=== PATIENT | female | born 1975 | race Caucasian/White ===

== ENCOUNTER 2017-04-05 19:16 | Emergency (ER) | payer OTHER ==
[2017-04-05 19:28] VITALS: BP 112/78; PULSE 80; BMI 25.0
[2017-04-05 19:51] LABS: PH,URINE 6.5 (4.5-8); URINE APPEARANCE Clear; URINE BILIRUBIN Negative (NEGATIVE); URINE BLOOD Negative (NEGATIVE); URINE GLUCOSE (UA) Negative (NEGATIVE); URINE KETONE Negative (NEGATIVE); URINE NITRITE Positive (NEGATIVE); URINE PROTEIN Negative (NEGATIVE); URINE UROBILINOGEN 0.2 (0.2-1.0)
[2017-04-05 19:52] LABS: URINE COLOR YELLOW; URINE LEUK ESTERASE 1+ (NEGATIVE)
--- NOTE | 2017-04-05 20:05 | PDOC ---
History of Present Illness - General History Source: Patient, Old Records Exam Limitations: No Limitations - History of Present Illness Initial Comments: 04/05/17 20:23 The patient is a 41 year old female, with a significant past medical history of recurrent UTIs, who presents to the emergency department with dysuria, frequency and periumbilical pressure onset today. She notes that she has been using Vasigil for a vaginal itch lately which she believes may have exacerbated her condition. She reports that her last UTI was last summer and she usually gets them in the summer. She denies any new sexual partners. She denies any vaginal discharge or vaginal bleeding. The patient denies chest pain, shortness of breath, headache and dizziness. Denies fever, chills, nausea, vomit, diarrhea and constipation. LMP: 2 weeks ago Allergies:None Past surgical history: None reported Social history: No alcohol, tobacco or drug use reported <Gary Hernandez - Last Filed: 04/05/17 20:23> <Chrissy Morrow - Last Filed: 04/06/17 01:06> - General Chief Complaint: Urinary Problem Stated Complaint: I have UTI s/s of UTI since 4pm" Time Seen by Provider: 04/05/17 19:31 Past History <Gary Hernandez - Last Filed: 04/05/17 20:23> - Past Medical History Other medical history: recurrent UTI - Reproductive History Is Patient Now?: No - Psycho/Social/Smoking Cessation Hx Anxiety: No Suicidal Ideation: No Smoking Status: No Smoking History: Never smoked Number of Cigarettes Smoked Daily: 0 Information on smoking cessation initiated: No Hx Alcohol Use: No Drug/Substance Use Hx: No Substance Use Type: None <Chrissy Morrow - Last Filed: 04/06/17 01:06> - Past Medical History Allergies/Adverse Reactions: Allergies Allergy/AdvReac Type Severity Reaction Status Date / Time No Known Allergies Allergy Verified 04/05/17 19:19 Home Medications: Ambulatory Orders Ciprofloxacin [Cipro (Restricted To Id)] 250 mg PO BID #10 tablet 04/05/17 Phenazopyridine HCl [Pyridium] 200 mg PO TID #6 tablet 04/05/17 Review of Systems - Review of Systems Able to Perform ROS?: Yes Comments:: 04/05/17 20:23 GENERAL/CONSTITUTIONAL: No fever or chills. No weakness. CARDIOVASCULAR: No chest pain or shortness of breath RESPIRATORY: No cough, wheezing, or hemoptysis. GASTROINTESTINAL: (+) Abdominal pain. No nausea, vomiting, diarrhea or constipation. GENITOURINARY: (+) Dysuria, frequency MUSCULOSKELETAL: No joint or muscle swelling or pain. No neck or back pain. SKIN: No rash NEUROLOGIC: No headache, vertigo, loss of consciousness, or change in strength/ sensation. <Gary Hernandez - Last Filed: 04/05/17 20:23> *Physical Exam - Vital Signs Last Vital Signs Temp Pulse Resp BP Pulse Ox 98.6 F 80 18 112/78 99 04/05/17 20:20 04/05/17 19:22 04/05/17 19:22 04/05/17 19:22 04/05/17 19:22 - Physical Exam Comments: 04/05/17 20:23 GENERAL: Awake, alert, and fully oriented, in no acute distress ABDOMEN: (+) Mild tenderness to light palpation suprapubic region. Soft, normoactive bowel sounds. No guarding, no rebound. No masses NEUROLOGICAL: Cranial nerves II through XII grossly intact. Normal speech, normal gait, no focal sensorimotor deficits SKIN: Warm, Dry, normal turgor, no rashes or lesions noted. <Gary Hernandez - Last Filed: 04/05/17 20:23> - Vital Signs Last Vital Signs Temp Pulse Resp BP Pulse Ox 80 18 112/78 99 04/05/17 19:22 04/05/17 19:22 04/05/17 19:22 04/05/17 19:22 <Chrissy Morrow - Last Filed: 04/06/17 01:06> ED Treatment Course - ADDITIONAL ORDERS Additional order review: Laboratory Results 04/05/17 19:37 Urine Color Yellow Urine Appearance Clear Urine pH 6.5 Ur Specific [place] <= 1.005 Urine Protein Negative Urine Glucose (UA) Negative Urine Ketones Negative Urine Blood Negative Urine Nitrite Positive Urine Bilirubin Negative Urine Urobilinogen 0.2 Ur Leukocyte Esterase 1+ H Urine HCG, Qual Negative - Medications Given in the ED: ED Medications Discontinued Medications Generic Name Dose Route Start Last Admin Trade Name Freq PRN Reason Stop Dose Admin Ciprofloxacin 250 mg 04/05/17 20:11 04/05/17 20:19 Cipro (Restricted To Id) PO 04/05/17 20:12 250 mg ONCE ONE Administration Phenazopyridine HCl 200 mg 04/05/17 20:12 04/05/17 20:20 Pyridium - PO 04/05/17 20:13 200 mg ONCE ONE Administration <DavidGaryfrandy Brandone - Last Filed: 04/05/17 20:23> - ADDITIONAL ORDERS Additional order review: Laboratory Results 04/05/17 19:37 Urine Color Yellow Urine Appearance Clear Urine pH 6.5 Ur Specific [place] <= 1.005 Urine Protein Negative Urine Glucose (UA) Negative Urine Ketones Negative Urine Blood Negative Urine Nitrite Positive Urine Bilirubin Negative Urine Urobilinogen 0.2 Ur Leukocyte Esterase 1+ H Urine HCG, Qual Negative <Chrissy Morrow - Last Filed: 04/06/17 01:06> Progress Note - Progress Note Progress Note: Documentation has been prepared under my direction and personally reviewed by me in its entirety. I attest that this documented accurately reflects all work, treatment, procedures and medical decision making performed by me. <Chrissy Morrow - Last Filed: 04/06/17 01:06> Medical Decision Making - Medical Decision Making As noted above, this 41-year-old woman with a history of frequent urinary tract infections presents with several hour history of symptoms consistent with her usual UTI complaints. Of note, patient denies fever/back pain/vomiting. She has no previous history of upper tract UTIs. No other complaints. Exam as noted; no evidence of systemic illness or upper tract UTI. Urinalysis is positive for nitrite/1+ LE; microscopic shows 2-3 red cells/4-6 white cells/few bacteria Urine sent for culture and sensitivity PGU negative Patient states that over the years, she has had some antibiotics that have been ineffective and some that have been effective. She cannot recall the names of any of them. She has no history of ALLERGIES or sensitivities to any antibiotic. Patient will be started on ciprofloxacin 250 mg twice a day for 5 days with first dose given here in the ER. Peridium 200 mg 3 times a day for 2 days will also be given for patient's complaint of dysuria. First dose will be given here in the emergency room. Patient has been advised to return to the ER if she has worsening pain ( especially development of back pain), fever/chills or vomiting <Chrissy Morrow - Last Filed: 04/06/17 01:06> *DC/Admit/Observation/Transfer - Attestations Scribe Attestion: 04/05/17 20:24 Documentation prepared by Gary Hernandez, acting as medical records clerk for Chrissy Morrow MD <Gary Hernandez - Last Filed: 04/05/17 20:23> <Chrissy Morrow - Last Filed: 04/06/17 01:06> Diagnosis at time of Disposition: UTI (urinary tract infection) Qualifiers: Urinary tract infection type: acute cystitis Hematuria presence: without hematuria Qualified Code(s): N30.00 - Acute cystitis without hematuria - Discharge Dispostion Disposition: HOME Condition at time of disposition: Stable - Prescriptions Prescriptions: Ciprofloxacin [Cipro (Restricted To Id)] 250 mg PO BID #10 tablet Phenazopyridine HCl [Pyridium] 200 mg PO TID #6 tablet - Patient Instructions Printed Discharge Instructions: Urinary Tract Infection Additional Instructions: drink plenty of water cipro 250mg twice a day for 5 days pyridium 200mg three times a day for 2 days return if you have worsening pain/fever/vomiting Follow-up with your general doctor within one week
[2017-04-05] MEDS ORDERED: CIPROFLOXACIN 250 MG TABLET (RESTRICTED TO ID) PO ONE ×2 (20:11→20:18)
[2017-04-05] MEDS ORDERED: PHENAZOPYRIDINE HCL 100 MG TABLET (FP) PO ONE (20:12)
[2017-04-05] MEDS ORDERED: PHENAZOPYRIDINE HCL 100 MG TABLET (FP) ONE (20:18)
[2017-04-05 20:20] VITALS: TEMP 98.6
[2017-04-05 20:55] LABS: URINE BACTERIA FEW /hpf (NEGATIVE)
== END 2017-04-05 20:32 | disposition home or self-care (01) ==
LOC: FER 19:16
DX: N30.00 Acute cystitis without hematuria (principal); Z87.440 Personal history of urinary (tract) infections
CPT/HCPCS: 81003; 81015; 84703; 87086; 99282-25

== ENCOUNTER 2018-01-05 16:14 | Emergency (ER) | payer OTHER | END 2018-01-05 17:32 | disposition home or self-care (01) | LOC: FER 16:14 | DX: J06.9 Acute upper respiratory infection, unspecified (principal) | CPT/HCPCS: 71046-TC-FY; 99283-25 ==

== ENCOUNTER 2021-12-06 17:57 | Emergency (ER) | payer OTHER ==
[2021-12-06 18:11] VITALS: BP 112/77; PULSE 87; TEMP 98; BMI 29.1
[2021-12-06] MEDS ORDERED: IBUPROFEN 600 MG TABLET (FP) PO ONE ×2 (18:23→18:24)
== END 2021-12-06 18:48 | disposition home or self-care (01) ==
LOC: JERFT 17:57
DX: S60.221A Contusion of right hand, initial encounter (principal); W22.09XA Striking against other stationary object, initial encounter
CPT/HCPCS: 73130-TC-RT-FY; 99283-25

== ENCOUNTER 2023-01-20 16:02 | Emergency (ER) | payer OTHER ==
[2023-01-20 16:14] VITALS: BP 125/82; PULSE 88; RESP 18; TEMP 98.3; BMI 29.1
[2023-01-20] MEDS ORDERED: SODIUM CHLORIDE 1,000 ML IV STA ×2 (16:51→17:41)
[2023-01-20] MEDS ORDERED: KETOROLAC TROMETHAMINE 30 MG/1 ML VIAL IVPUSH ONE (16:51)
[2023-01-20] MEDS ORDERED: KETOROLAC TROMETHAMINE 30 MG/1 ML VIAL ONE ×2 (16:53→18:24)
== END 2023-01-20 18:37 | disposition home or self-care (01) ==
LOC: FER 16:02
PROC: 3E0333Z Introduction of Anti-inflammatory into Peripheral Vein, Percutaneous Approach (ICD-10-PCS; principal; 2023-01-20)
PROC: 3E0337Z Introduction of Electrolytic and Water Balance Substance into Peripheral Vein, Percutaneous Approach (ICD-10-PCS; 2023-01-20)
PROC: 3E0337Z Introduction of Electrolytic and Water Balance Substance into Peripheral Vein, Percutaneous Approach (ICD-10-PCS; 2023-01-20)
DX: N30.00 Acute cystitis without hematuria (principal)
CPT/HCPCS: 99284-25

== ENCOUNTER 2023-07-17 21:23 | Emergency (ER) | payer OTHER ==
[2023-07-17 21:30] VITALS: BP 133/90; PULSE 103; RESP 18; TEMP 98.3; BMI 30.9
[2023-07-17] MEDS ORDERED: PHENAZOPYRIDINE HCL 100 MG TABLET (FP) PO ONE (21:43)
[2023-07-17] MEDS ORDERED: CIPROFLOXACIN 500 MG TABLET (RESTRICTED TO ID) PO ONE (21:43)
[2023-07-17] MEDS ORDERED: CIPROFLOXACIN 250 MG TABLET (RESTRICTED TO ID) PO ONE (21:45)
[2023-07-17] MEDS ORDERED: PHENAZOPYRIDINE HCL 100 MG TABLET (FP) ONE (21:45)
== END 2023-07-17 21:59 | disposition home or self-care (01) ==
LOC: FER 21:23
DX: R35.0 Frequency of micturition (principal); R39.15 Urgency of urination; R30.0 Dysuria; N30.00 Acute cystitis without hematuria
CPT/HCPCS: 81003; 81015; 87086; 87186; 99283-25

== ENCOUNTER 2023-09-08 14:45 | Emergency (ER) | payer OTHER ==
[2023-09-08 15:11] VITALS: BP 122/69; PULSE 80; RESP 16; TEMP 98; BMI 29.2
== END 2023-09-08 16:26 | disposition home or self-care (01) ==
LOC: FER 14:45
DX: S30.0XXA Contusion of lower back and pelvis, initial encounter (principal); W19.XXXA Unspecified fall, initial encounter; Y92.9 Unspecified place or not applicable
CPT/HCPCS: 72100-TC-FY; 99283-25

== ENCOUNTER 2024-05-27 22:19 | Emergency (ER) | payer OTHER ==
[2024-05-27 22:28] VITALS: BP 119/68; PULSE 80; RESP 18; TEMP 97.8; BMI 28.3
[2024-05-27 23:17] LABS: EPI CELLS >36 /uL (0-25.1); HYALINE CASTS 2 /uL (0-3.1); URINE APPEARANCE CLEAR; URINE BACTERIA 2756 /uL (0-1359); URINE BILIRUBIN NEGATIVE (NEGATIVE); URINE COLOR YELLOW; URINE GLUCOSE (UA) NEGATIVE (NEGATIVE); URINE KETONE TRACE (NEGATIVE); URINE LEUK ESTERASE NEGATIVE (NEGATIVE); URINE NITRITE NEGATIVE (NEGATIVE); URINE PROTEIN NEGATIVE (NEGATIVE); URINE RBC 80 /uL (0-23.9); URINE WBC 16 /uL (0-25.8)
[2024-05-27] MEDS ORDERED: CIPROFLOXACIN 500 MG TABLET (RESTRICTED TO ID) PO ONE (23:17)
== END 2024-05-27 23:27 | disposition home or self-care (01) ==
LOC: JERFT 22:19
DX: N30.00 Acute cystitis without hematuria (principal); R30.0 Dysuria; R35.0 Frequency of micturition; R10.30 Lower abdominal pain, unspecified
CPT/HCPCS: 81003; 87086; 99283-25